=== PATIENT | male | born 1970 | race Two or more races ===

== ENCOUNTER 2021-06-21 07:58 | Emergency (ER) | payer OTHER, SELFPAY ==
[~2021-06-21] VITALS: Ht 180.3 cm; Wt 82.1 kg
[2021-06-21 08:05] VITALS: BP_SYST 120
[2021-06-21] MEDS ORDERED: IBUPROFEN 600 MG TABLET PO ONE (09:45)
[2021-06-21] MEDS ORDERED: ACETAMINOPHEN 500 MG TABLET PO ONE (09:45)
[2021-06-21] MEDS ORDERED: predniSONE 20 MG TABLET PO ONE (09:45)
[2021-06-21] MEDS ORDERED: ONDA-8 TL ×3 (09:53→10:03)
[2021-06-21] MEDS ORDERED: ONDANSETRON 4 MG ODT TAB PO ONE (10:00)
[2021-06-21] MEDS ORDERED: IBUP-1969 PO (10:03)
[2021-06-21] MEDS ORDERED: PRED20TA PO (10:03)
[2021-06-21] MEDS ORDERED: ALBMDI INH (10:03)
[2021-06-21] MEDS ORDERED: ACET-2634 PO (10:03)
== END 2021-06-21 10:14 | disposition home or self-care (01) ==
LOC: SED 07:58
DX: U07.1 COVID-19 (principal); J12.82 Pneumonia due to coronavirus disease 2019; J45.909 Unspecified asthma, uncomplicated; Z79.899 Other long term (current) drug therapy
CPT/HCPCS: 71045; 99284; J7512; Q0162